=== PATIENT | male | born 2000 | race Two or more races ===

== ENCOUNTER 2021-04-18 21:34 | Emergency (ER) | payer SELFPAY ==
[~2021-04-18] VITALS: Ht 175.3 cm; Wt 93.0 kg
--- NOTE | 2021-04-18 21:49 | NUR ---
PT AAOX4. BIBRA 40 FOR ETOH. BY STANDERS CALLED FOR SLEEPING BEHIND THE WHEEL, PLACED IN BED 13 ON MONITOR AND PULSE OX. VSS. NO ACUTE DISTRESS NOTED.
--- NOTE | 2021-04-19 03:10 | NUR ---
Patient discharged to home in stable condition. Written and verbal after care instructions given. Patient verbalizes understanding of instruction. Pt ambulated out of ED. VSS.
[2021-04-19 04:07] VITALS: BP 116/76
== END 2021-04-19 04:07 | disposition home or self-care (01) ==
LOC: ER 21:34
DX: F10.129 Alcohol abuse with intoxication, unspecified (principal); F17.200 Nicotine dependence, unspecified, uncomplicated; Z60.2 Problems related to living alone; Y90.9 Presence of alcohol in blood, level not specified
CPT/HCPCS: 82962-TC

== ENCOUNTER 2021-04-19 13:16 | Emergency (ER) | payer BC ==
[~2021-04-19] VITALS: Ht 172.7 cm; Wt 99.8 kg
[2021-04-19 13:30] VITALS: BP 125/81
--- NOTE | 2021-04-19 13:45 | NUR ---
Asked patient for urine sample but patient refused. explained importance of the urine sample but patient continue to refuse
--- NOTE | 2021-04-19 15:50 | NUR ---
Patient eloped from facility. ER MD notified.
== END 2021-04-19 15:50 | disposition left against medical advice (07) ==
LOC: ER 13:17
DX: S00.81XA Abrasion of other part of head, initial encounter (principal); R00.0 Tachycardia, unspecified; I10 Essential (primary) hypertension; E07.9 Disorder of thyroid, unspecified; F17.200 Nicotine dependence, unspecified, uncomplicated; Z60.2 Problems related to living alone; V49.49XA Driver injured in collision with other motor vehicles in traffic accident, initial encounter; Y93.89 Activity, other specified; Y92.413 State road as the place of occurrence of the external cause; Y99.8 Other external cause status